=== PATIENT | female | born 1970 | race Caucasian/White ===

== ENCOUNTER 2016-07-25 15:21 | Emergency (ER) | payer BC, OTHER ==
[~2016-07-25] VITALS: Ht 177.8 cm; Wt 68.0 kg
[~2016-07-25 15:21] MED LIST: CELE20TA PO; DOCU1CAP39 PO; HYDR-4197 PO; PERC5TAB12 PO; PRED20 PO; WALKER STANDARD; WARF5 PO
[2016-07-25 15:24] VITALS: BP 150/91; PULSE 80; RESP 12; TEMP 98.6; O2SAT 100
[2016-07-25 15:55] LABS: AUTOMATED NEUTROPHIL # 5.1 TH/MM3 (1.8-7.7); BASOPHIL % 0.6 % (0.0-2.0); EOSINOPHIL # 0.2 TH/MM3 (0-0.4); EOSINOPHIL % 2.1 % (0.0-4.0); HEMATOCRIT 32.3 % (35.0-46.0); LYMPHOCYTE # 1.3 TH/MM3 (1.0-4.8); MEAN CELL VOLUME 74.6 FL (80.0-100.0); MEAN CORPUSCULAR HEMOGLOBIN 23.8 PG (27.0-34.0); MEAN CORPUSCULAR HGB CONC 31.9 % (32.0-36.0); MONO % 6.3 % (0.0-8.0); PLATELET COUNT 253 TH/MM3 (150-450); RED BLOOD COUNT 4.33 MIL/MM3 (4.00-5.30); WHITE BLOOD COUNT 7.1 TH/MM3 (4.0-11.0)
[2016-07-25 15:58] LABS: HEMO FLAGS AUTO DIFF
[2016-07-25] MEDS ORDERED: CELE20TA PO (16:06)
[2016-07-25 16:18] LABS: POTASSIUM 3.1 MEQ/L (3.5-5.1)
[2016-07-25 16:31] LABS: APTT (PATIENT) 26.6 SEC (24.3-30.1); INTERNATIONAL NORMALIZED RATIO 1.1 RATIO
[2016-07-25 16:46] LABS: SPHEROCYTES OCC (NORMAL)
[2016-07-25 16:47] LABS: PLATELET ESTIMATE SMEAR NORMAL (NORMAL); PLATELET MORPHOLOGY NORMAL (NORMAL); SCAN/DIFF AUTO DIFF CONFIRMED
--- NOTE | 2016-07-25 16:51 | RADRPT ---
EXAM DATE/TIME: 07/25/2016 16:46 [facility] COMPARISON: CHEST SINGLE AP, October 18, 2014, 6:11. INDICATIONS : Patient states blurred vision, shortness of breath and chest pain. MEDICAL HISTORY : Hypertension. Pulmonary embolism SURGICAL HISTORY : None. ENCOUNTER: Initial ACUITY: 1 day PAIN SCORE: 10/10 LOCATION: Bilateral chest FINDINGS: PA and lateral views of the chest demonstrate the lungs to be symmetrically aerated without evidence of mass, infiltrate or effusion. The cardiomediastinal contours are unremarkable. Osseous structure s are intact. CONCLUSION: No acute disease. Nelson Bruno MD on July 25, 2016 at 16:48 Board Certified Radiologist. This report was verified electronically.
--- NOTE | 2016-07-25 16:54 | PD ---
HPI Chief Complaint: Respiratory Distress Time Seen by Provider: 16:16 Travel History International Travel<30 days: No Contact w/Intl Traveler<30days: No Traveled to known affect area: No History of Present Illness HPI This 44 year-old woman presents to the emergency department complaining of chest pain, shortness of breath, dyspnea on exertion, ongoing for several weeks , gradually worsening. 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 She states that she completed a year of blood thinners, had trouble with bleeding related to the Xarelto, and so they discontinued her anticoagulation. She is worried she may have a repeat blood clot. History Past Medical History Narrative Medical PE Thrombophilia LMP: 06/2016 Social History Alcohol Use: No Tobacco Use: No Allergies-Medications (Allergen,Severity, Reaction): Coded Allergies: Contrast Media (Verified Allergy, Severe, Hives, 07/25/16) Penicillin (Verified Allergy, Intermediate, RASH, PAIN, 07/25/16) Reported Meds & Prescriptions Reported Meds & Active Scripts Active Reported Celexa (Citalopram Hydrobromide) 20 Mg Tab 20 Mg PO DAILY Review of Systems Except as stated in HPI: all other systems reviewed are Neg Physical Exam Narrative GENERAL: 44 year-old woman, generally well-appearing. No acute distress. SKIN: Warm and dry. HEAD: Atraumatic. Normocephalic. EYES: Pupils equal and round. No scleral icterus. No injection or drainage. ENT: No nasal bleeding or discharge. Mucous membranes pink and moist. NECK: Trachea midline. No JVD. CARDIOVASCULAR: Regular rate and rhythm. No murmur appreciated. RESPIRATORY: No accessory muscle use. Clear to auscultation. Breath sounds equal bilaterally. GASTROINTESTINAL: Abdomen soft, non-tender, nondistended. Hepatic and splenic margins not palpable. MUSCULOSKELETAL: No obvious deformities. No clubbing. No cyanosis. No edema. NEUROLOGICAL: Awake and alert. No obvious cranial nerve deficits. Motor grossly within normal limits. Normal speech. PSYCHIATRIC: Appropriate mood and affect; insight and judgment normal. Data Data Last Documented VS Vital Signs Date Time Temp Pulse Resp B/P Pulse Ox O2 Delivery O2 Flow Rate FiO2 07/25/16 16:05 16 98 Room Air 07/25/16 15:24 98.6 80 150/91 Orders Electrocardiogram (07/25/16 ) Complete Blood Count With Diff (07/25/16 15:32) Basic Metabolic Panel (Bmp) (07/25/16 15:32) D-Dimer (07/25/16 15:32) Act Partial Throm Time (Ptt) (07/25/16 15:32) Prothrombin Time / Inr (Pt) (07/25/16 15:32) Chest, Pa & Lat (07/25/16 ) Ventilation & Perfusion Scan (07/25/16 ) Labs Laboratory Tests Test 07/25/16 15:42 White Blood Count 7.1 TH/MM3 Red Blood Count 4.33 MIL/MM3 Hemoglobin 10.3 GM/DL Hematocrit 32.3 % Mean Corpuscular Volume 74.6 FL Mean Corpuscular Hemoglobin 23.8 PG Mean Corpuscular Hemoglobin 31.9 % Concent Red Cell Distribution Width 17.0 % Platelet Count 253 TH/MM3 Mean Platelet Volume 7.7 FL Neutrophils (%) (Auto) 72.0 % Lymphocytes (%) (Auto) 19.0 % Monocytes (%) (Auto) 6.3 % Eosinophils (%) (Auto) 2.1 % Basophils (%) (Auto) 0.6 % Neutrophils # (Auto) 5.1 TH/MM3 Lymphocytes # (Auto) 1.3 TH/MM3 Monocytes # (Auto) 0.4 TH/MM3 Eosinophils # (Auto) 0.2 TH/MM3 Basophils # (Auto) 0.0 TH/MM3 CBC Comment AUTO DIFF Differential Comment AUTO DIFF CONFIRMED Platelet Estimate NORMAL Platelet Morphology Comment NORMAL Spherocytes OCC Prothrombin Time 12.0 SEC Prothromb Time International 1.1 RATIO Ratio Activated Partial 26.6 SEC Thromboplast Time D-Dimer Quantitative (PE/DVT) 0.30 MG/L FEU Sodium Level 139 MEQ/L Potassium Level 3.1 MEQ/L Chloride Level 104 MEQ/L Carbon Dioxide Level 25.0 MEQ/L Anion Gap 10 MEQ/L Blood Urea Nitrogen 8 MG/DL Creatinine 0.74 MG/DL Estimat Glomerular Filtration 86 ML/MIN Rate Random Glucose 88 MG/DL Calcium Level 8.6 MG/DL [facility] Medical Decision Making Medical Screen Exam Complete: Yes Emergency Medical Condition: Yes Interpretation(s) My review of EKG: Normal sinus rhythm at a rate of 75, incomplete right bundle branch block, normal axis, normal intervals, no acute ischemia. CBC mild anemia BMP negative Coags unremarkable D-dimer 0.3 Chest x-ray negative PG negative Differential Diagnosis Pulmonary hypertension, right sided heart failure, PE, anxiety, other Narrative Course Medical decision making 44 year-old woman with gradually worsening shortness of breath with exertion and exercise intolerance, possibly related to anxiety given her history and knowing that she does not any blood thinners, possible recurrent PE, possible right sided heart strain or pulmonary hypertension related to previous PEs. We' ll check labs, CT scan, x-ray. Diagnosis Primary Impression: Shortness of breath Additional Impression: Anxiety Additional Instructions: Follow-up with your primary doctor in the next one to 2 weeks. Return to the emergency department for any worsening chest pain, trouble breathing, or any other new or worsening symptoms. Continue current medications. Med/Other Pt SpecificInfo: No Change to Meds Disposition: 01 DISCHARGE HOME Condition: Stable Guzman Osborne MD Jul 25, 2016 16:53
--- NOTE | 2016-07-25 17:28 | RADRPT ---
EXAM DATE/TIME: 07/25/2016 16:58 [facility] COMPARISON: CHEST PA & LAT, July 25, 2016, 16:46. INDICATIONS : Shortness of breath for one day. Syncope. DOSE: 8.8 mCi Tc99m MAA IV 1.4 mCi Tc99m DTPA aerosol MEDICAL HISTORY : None SURGICAL HISTORY : section. Tubal ligation. ENCOUNTER: Initial ACUITY: 1 day PAIN SCALE: 0/10 LOCATION: chest TECHNIQUE: Following five minutes of tidal breathing of DTPA aerosol, planar images of the lungs were performed in eight projections. The patient was then injected with MAA, and eight-view perfusion scan was perf ormed. FINDINGS: There is a homogeneous pattern of aerosol delivery to the periphery of both lungs. No focal ventilat ory defects are seen. The perfusion lung scan demonstrates a homogenous pattern of uptake in both lungs. No segmental or s ubsegmental defects are seen. CONCLUSION: Normal ventilation/perfusion lung scan. Danish Forbes MD on July 25, 2016 at 17:26 Board Certified Radiologist. This report was verified electronically.
--- NOTE | 2016-07-26 12:31 | EKG ---
Date Performed: 07/25/2016 Time Performed: 15:45:20 PTAGE: 45 years EKG: Sinus rhythm ST-T ABNORMALITIES DRAMATICALLY IMPROVED SINCE THE PRIOR TRACING POOR R WAVE PROGRESSION, CANNOT EXC LUDE OLD ANTEROSEPTAL INFARCT BORDERLINE ECG PREVIOUS TRACING : 10/18/2014 05.57 DOCTOR: Elijah Sparks Interpretating Date/Time 07/26/2016 12:29:36
== END 2016-07-25 18:05 | disposition home or self-care (01) ==
LOC: NETRI 15:21
DX: R06.02 Shortness of breath (principal); F41.9 Anxiety disorder, unspecified; R94.31 Abnormal electrocardiogram [ECG] [EKG]; D68.59 Other primary thrombophilia; Z86.711 Personal history of pulmonary embolism
CPT/HCPCS: 71020; 78582; 80048; 85025; 85379; 85610; 85730; 93005; 99285; A9540; A9567

== ENCOUNTER 2016-10-03 09:42 | Emergency (ER) | payer BC ==
[~2016-10-03] VITALS: Ht 172.7 cm; Wt 69.0 kg
[~2016-10-03 09:42] MED LIST changes: -DOCU1CAP39 PO; -HYDR-4197 PO; -PERC5TAB12 PO; -PRED20 PO; -WALKER STANDARD; -WARF5 PO
[2016-10-03 09:45] VITALS: BP 150/71; PULSE 98; RESP 16; TEMP 98.4; O2SAT 100
[2016-10-03] MEDS ORDERED: SODIUM CHLOR 0.9% 1000 ML INJ 1,000 ML IV SCH (10:19)
[2016-10-03 10:20] VITALS: RESP 17; O2SAT 98
--- NOTE | 2016-10-03 10:25 | PD ---
HPI Chief Complaint: Abdominal Pain Time Seen by Provider: 10:13 Travel History International Travel<30 days: No Contact w/Intl Traveler<30days: No Traveled to known affect area: No History of Present Illness HPI 45-year-old female here for evaluation of abdominal pain and blood in her stool. Symptoms have been going on for the last 2 weeks. Patient reports primary blood per rectum. She reports diffuse abdominal discomfort which she describes as burning, mild to moderate, no modifying factors. She is not on any antiplatelets or anticoagulants. No rectal pain. No hematemesis or coffee- ground emesis. No history of abdominal surgeries. No family history of colon cancer. PFSH Past Medical History Anxiety: Yes Depression: Yes Cancer: No Diminished Hearing: No Endocrine: No Gastrointestinal Disorders: Yes (RECTAL BLEEDING HX) Immune Disorder: No Musculoskeletal: Yes (low back pain) Neurologic: Yes (BULGING DISC L4,L5) Psychiatric: Yes Tetanus Vaccination: > 5 Years Influenza Vaccination: No ?: Not LMP: 10/03/16 Past Surgical History Section: Yes Gynecologic Surgery: Yes () Social History Alcohol Use: No Tobacco Use: No Substance Use: No Allergies-Medications (Allergen,Severity, Reaction): Coded Allergies: Contrast Media (Verified Allergy, Severe, Hives, 10/03/16) Penicillin (Verified Allergy, Intermediate, RASH, PAIN, 10/03/16) Reported Meds & Prescriptions Reported Meds & Active Scripts Active Reported Celexa (Citalopram Hydrobromide) 20 Mg Tab 20 Mg PO DAILY Review of Systems Except as stated in HPI: all other systems reviewed are Neg Physical Exam Narrative GENERAL: Well-developed, well-nourished, comfortable, no acute distress. SKIN: Warm and dry. No rash. No pallor. HEAD: Atraumatic. Normocephalic. EYES: Pupils equal and round. No scleral icterus. No injection or drainage. ENT: Mucous membranes pink and moist. NECK: Trachea midline. No JVD. CARDIOVASCULAR: Regular rate and rhythm. RESPIRATORY: No accessory muscle use. Clear to auscultation. Breath sounds equal bilaterally. GASTROINTESTINAL: Abdomen soft, non-tender, nondistended. Normal bowel sounds. RECTUM: Exam performed in the presence of a female nurse. No masses, no fissures, no hemorrhoids. No stool in rectal vault. MUSCULOSKELETAL: No obvious deformities. No clubbing. No cyanosis. No edema. NEUROLOGICAL: Awake and alert. No obvious cranial nerve deficits. Motor grossly within normal limits. Normal speech. PSYCHIATRIC: Appropriate mood and affect; insight and judgment normal. Data Data Last Documented VS Vital Signs Date Time Temp Pulse Resp B/P Pulse Ox O2 Delivery O2 Flow Rate FiO2 10/03/16 11:45 16 10/03/16 10:20 98 Room Air 10/03/16 09:45 98.4 98 150/71 Orders Beta Hcg (Quant/Titer) (10/03/16 10:19) Complete Blood Count With Diff (10/03/16 10:19) Comprehensive Metabolic Panel (10/03/16 10:19) Lipase (10/03/16 10:19) Prothrombin Time / Inr (Pt) (10/03/16 10:19) Act Partial Throm Time (Ptt) (10/03/16 10:19) Urinalysis - C+S If Indicated (10/03/16 10:19) Iv Access Insert/Monitor (10/03/16 10:19) Ecg Monitoring (10/03/16 10:19) Oximetry (10/03/16 10:19) Sodium Chlor 0.9% 1000 Ml Inj (Ns 1000 M (10/03/16 10:19) Sodium Chloride 0.9% Flush (Ns Flush) (10/03/16 10:30) Ct Abd/Pel W/O Iv Contrast (10/03/16 10:25) Morphine Inj (Morphine Inj) (10/03/16 11:45) Labs Laboratory Tests Test 10/03/16 10/03/16 10:20 10:30 White Blood Count 8.2 TH/MM3 Red Blood Count 4.40 MIL/MM3 Hemoglobin 10.7 GM/DL Hematocrit 33.3 % Mean Corpuscular Volume 75.5 FL Mean Corpuscular Hemoglobin 24.4 PG Mean Corpuscular Hemoglobin 32.3 % Concent Red Cell Distribution Width 17.7 % Platelet Count 316 TH/MM3 Mean Platelet Volume 7.7 FL Neutrophils (%) (Auto) 81.9 % Lymphocytes (%) (Auto) 10.7 % Monocytes (%) (Auto) 5.8 % Eosinophils (%) (Auto) 0.9 % Basophils (%) (Auto) 0.7 % Neutrophils # (Auto) 6.7 TH/MM3 Lymphocytes # (Auto) 0.9 TH/MM3 Monocytes # (Auto) 0.5 TH/MM3 Eosinophils # (Auto) 0.1 TH/MM3 Basophils # (Auto) 0.1 TH/MM3 CBC Comment AUTO DIFF Differential Comment AUTO DIFF CONFIRMED Prothrombin Time 11.9 SEC Prothromb Time International 1.1 RATIO Ratio Activated Partial 26.4 SEC Thromboplast Time Sodium Level 141 MEQ/L Potassium Level 3.5 MEQ/L Chloride Level 107 MEQ/L Carbon Dioxide Level 25.5 MEQ/L Anion Gap 9 MEQ/L Blood Urea Nitrogen 8 MG/DL Creatinine 0.71 MG/DL Estimat Glomerular Filtration 90 ML/MIN Rate Random Glucose 97 MG/DL Calcium Level 8.8 MG/DL Total Bilirubin 0.3 MG/DL Aspartate Amino Transf 15 U/L (AST/SGOT) Alanine Aminotransferase 18 U/L (ALT/SGPT) Alkaline Phosphatase 59 U/L Total Protein 7.1 GM/DL Albumin 4.1 GM/DL Lipase 113 U/L Human Chorionic Gonadotropin, LESS THAN 1 Quant MIU/ML Urine Color LIGHT-YELLOW Urine Turbidity CLEAR Urine pH 5.5 Urine Specific Junction 1.003 Urine Protein NEG mg/dL Urine Glucose (UA) NEG mg/dL Urine Ketones NEG mg/dL Urine Occult Blood MOD Urine Nitrite NEG Urine Bilirubin NEG Urine Urobilinogen LESS THAN 2.0 MG/DL Urine Leukocyte Esterase NEG Urine RBC LESS THAN 1 /hpf Urine Squamous Epithelial 1 /hpf Cells Urine Bacteria RARE /hpf Microscopic Urinalysis Comment CULT NOT INDICATED MDM Medical Decision Making Medical Screen Exam Complete: Yes Emergency Medical Condition: Yes Medical Record Reviewed: Yes Differential Diagnosis Colitis, IBD, colon mass, anemia, hemorrhoids, AVM Narrative Course Vital signs reviewed. CBC is remarkable for hemoglobin of 10.7 which is around her baseline. The rest of her CBC shows WBC 8.2, hematocrit 33.5, platelets 316, neutrophils 81.9% . CMP is unremarkable. Beta hCG is negative. UA shows moderate occult blood, rare bacteria, not suggestive of UTI. CT abdomen pelvis: Negative CT scan of the abdomen and pelvis. Patient was made aware of all findings. She is resting comfortably. She became very tearful because she does not have a primary care physician or someone follow-up with his and palpation. She does have insurance. On physical exam her rectal exam shows no masses, no fissures, no hemorrhoids. There is no stool in the rectal vault, and there is certainly no gross blood per rectum. Her abdominal exam is benign. At this point I do not believe the patient requires admission for further workup, and can be worked up as an outpatient. I will give her the name of the class a lineman cardiac monitor technician with whom to follow-up with regarding her reported GI bleed. I have also encouraged her to find a primary care physician with whom to follow-up with. She was informed on when to return to the emergency department. She verbalizes understanding and agreement with plan. Diagnosis Primary Impression: Abdominal pain Qualified Code: R10.84 - Generalized abdominal pain Additional Impression: Rectal bleed Referrals: Emily Garnett MD 3 days Clinical Trials Assistant Primary Care Physician 3 days Additional Instructions: Follow-up with a primary care physician this week. Follow-up with class a lineman Dr. Garnett or a class a lineman of your choice this week. Return to the emergency department for worsening symptoms or any other concerns. Scripts Ondansetron Odt (Zofran Odt)4 Mg Tab4 Mg SL Q8HR PRN (Nausea/Vomiting) #30 TAB Ref 0 Prov:Gigi Verduzco MD 10/03/16 Dicyclomine (Bentyl)20 Mg Tab20 Mg PO TID #20 TAB Ref 0 Prov:Gigi Verduzco MD 10/03/16 Disposition: 01 DISCHARGE HOME Condition: Stable Gigi Verduzco MD Oct 03, 2016 10:25
[2016-10-03] MEDS ORDERED: SODIUM CHLORIDE 0.9% FLUSH 10 ML FLUSH IV FLUSH PRN (10:30)
[2016-10-03 10:40] LABS: AUTOMATED NEUTROPHIL # 6.7 TH/MM3 (1.8-7.7); BASOPHIL # 0.1 TH/MM3 (0-0.2); BASOPHIL % 0.7 % (0.0-2.0); EOSINOPHIL # 0.1 TH/MM3 (0-0.4); EOSINOPHIL % 0.9 % (0.0-4.0); HEMATOCRIT 33.3 % (35.0-46.0); LYMPH % 10.7 % (9.0-44.0); LYMPHOCYTE # 0.9 TH/MM3 (1.0-4.8); MEAN CELL VOLUME 75.5 FL (80.0-100.0); MEAN CORPUSCULAR HEMOGLOBIN 24.4 PG (27.0-34.0); MEAN CORPUSCULAR HGB CONC 32.3 % (32.0-36.0); MONO % 5.8 % (0.0-8.0); NEUT % 81.9 % (16.0-70.0); PLATELET COUNT 316 TH/MM3 (150-450); RED CELL DISTRIBUTION WIDTH 17.7 % (11.6-17.2); WHITE BLOOD COUNT 8.2 TH/MM3 (4.0-11.0)
[2016-10-03 10:41] LABS: HEMO FLAGS AUTO DIFF
[2016-10-03 10:50] LABS: APTT (PATIENT) 26.4 SEC (24.3-30.1); INTERNATIONAL NORMALIZED RATIO 1.1 RATIO; PROTHROMBIN TIME - PATIENT 11.9 SEC (9.8-11.6)
[2016-10-03 10:52] LABS: BACTERIA, URINE RARE /hpf; BLOOD, URINE MOD (NEG); GLUCOSE,URINE NEG (NEG); KETONE, URINE NEG (NEG); NITRITE,URINE NEG (NEG); PH, URINE 5.5 (5.0-8.5); SQUAMOUS EPITHELIAL CELL URINE 1 /hpf (0-5); URINE COLOR LIGHT-YELLOW (YELLW/STRAW)
[2016-10-03 10:56] LABS: COMMENT (UR) CULT NOT INDICATED; CULTURE IF INDICATED CULT NOT INDICATED
[2016-10-03 10:56] LABS: ALT (GPT) 18 U/L (10-53); ANION GAP 9 MEQ/L (5-15); AST (GOT) 15 U/L (15-37); BICARBONATE 25.5 MEQ/L (21.0-32.0); BLOOD UREA NITROGEN 8 MG/DL (7-18); CHLORIDE 107 MEQ/L (98-107); GLOMERULAR FILTRATION RATE 90 ML/MIN (>89); POTASSIUM 3.5 MEQ/L (3.5-5.1); SODIUM (NA) 141 MEQ/L (136-145)
[2016-10-03 11:00] LABS: ALKALINE PHOSPHATASE 59 U/L (45-117); BETA HCG QUANT LESS THAN 1 MIU/ML (0-5); TOTAL BILIRUBIN ADULT 0.3 MG/DL (0.2-1.0)
[2016-10-03 11:21] LABS: SCAN/DIFF AUTO DIFF CONFIRMED
[2016-10-03 11:45] VITALS: RESP 16
[2016-10-03] MEDS ORDERED: MORPHINE SULFATE 4 MG/ML INJ IV PUSH ONE (11:45)
--- NOTE | 2016-10-03 11:50 | RADRPT ---
EXAM DATE/TIME: 10/03/2016 11:14 [facility] COMPARISON: CT BRAIN W/O CONTRAST, October 20, 2014, 14:52. INDICATIONS : Abdomen pain. ORAL CONTRAST: No oral contrast ingested. RADIATION DOSE: 10.08 CTDIvol (mGy) MEDICAL HISTORY : None SURGICAL HISTORY : None. ENCOUNTER: Initial ACUITY: 1 day PAIN SCALE: 5/10 LOCATION: Abdomen TECHNIQUE: Volumetric scanning of the abdomen and pelvis was performed. Using automated exposure control and ad justment of the mA and/or kV according to patient size, radiation dose was kept as low as reasonably achievable to obtain optimal diagnostic quality images. FINDINGS: The limited portion of the lung base visualized is clear. The appearance of the liver, spleen, pancreas, adrenal glands and kidneys is within normal limits. There is no retroperitoneal adenopathy. The abdominal aorta is normal in caliber. The visualized loops of small and large bowel are unremarkable. There is no free fluid within the pelvis. No iliac or inguinal adenopathy is seen. The reproductive o rgans are intact. The visualized bony structures demonstrate degenerative changes within the spine but are otherwise in tact. CONCLUSION: 1. Negative CT scan of the abdomen and pelvis. Davidson Arias MD on October 03, 2016 at 11:40 Board Certified Radiologist. This report was verified electronically.
[2016-10-03] MEDS ORDERED: BENT20TA PO (12:06)
[2016-10-03] MEDS ORDERED: ZOFR4TAB3 SL (12:06)
[2016-10-03 12:14] VITALS: BP 122/76; TEMP 97.8
== END 2016-10-03 12:14 | disposition home or self-care (01) ==
LOC: NEPC 09:42
DX: K62.5 Hemorrhage of anus and rectum (principal)
CPT/HCPCS: 74176; 80053; 81001; 83690; 84702; 85025; 85610; 85730; 96361; 96374; 99284; J2270; J7030

== ENCOUNTER → 2017-05-13 | Day surgery (SDC) | payer OTHER ==
[~2017-05-13] MED LIST changes: +BENT20TA PO; +LACTATED RINGER'S 1000 ML INJ 1,000 ML ONE; +PROPOFOL 500 MG/50 ML BTL IV ONE; +ZOFR4TAB3 SL
--- NOTE | 2017-05-13 09:21 | GIPROC ---
[facility] [address], [address] EGD PROCEDURE REPORT EXAM DATE: 05/13/2017 PATIENT NAME: Ofe Harris MR #: [id number] BIRTHDATE: 1970 ATTENDING: Chen Bello MD ORDER #: [id number] ART COORDINATOR: Nathen Amezquita RN STATUS: outpatient INDICATIONS: The patient is a 46 yr old female here for an EGD due to history of esophageal reflux PROCEDURE PERFORMED: EGD w/ biopsy MEDICATIONS: None and Per Anesthesia. TOPICAL ANESTHETIC: CONSENT: The patient understands the risks and benefits of the procedure and understands that these risks include, but are not limited to: sedation, allergic reaction, infection, perforation and/or bleeding. Alternative means of evaluation and treatment include, among others: physical exam, x-rays, and/or surgical intervention. The patient elects to proceed with this endoscopic procedure. medical equipment was checked for proper function. Hand hygiene and appropriate measures for infection prevention was taken. After the risks, benefits and alternatives of the procedure were thoroughly explained, Informed consent was verified, confirmed and timeout was successfully executed by the treatment team. The patient was anesthetized with topical anesthesia and the EC-[id number] ([id number]) endoscope was introduced through the mouth and advanced to the second portion of the duodenum. Retroflexed views revealed no abnormalities The gastroscope was then slowly withdrawn and removed. ESOPHAGUS: The mucosa of the esophagus appeared normal. STOMACH: There was erythematous moderate gastritis in the gastric antrum. A biopsy was performed using cold forceps. Sample sent for histology. DUODENUM: The duodenal mucosa appeared normal in the bulb and second portion of the duodenum. ADVERSE EVENTS: There were no complications. IMPRESSIONS: 1. The esophagus appeared normal 2. There was erythematous gastritis in the gastric antrum; biopsy was performed 3. Normal duodenal mucosa in the bulb and second portion of the duodenum 4. Retroflexed views revealed no abnormalities RECOMMENDATIONS: 1. Await biopsy results. Biopsy results will not be ready for 7-10 days. If you don't hear from us in two weeks, call our office for biopsy results. 2. Anti-reflux regimen 3. Continue PPI 4. HIDA scan PATIENT CONDITION: stable DISPOSITION: Home REPEAT EXAM: Return 3 years EGD pending biopsy results Chen Bello MD eSigned: Chen Bello MD 05/13/2017 9:21 AM cc: PATIENT NAME: Ofe Harris MR#: [id number]
--- NOTE | 2017-05-13 09:24 | GIPROC ---
[facility] [address], [address] COLONOSCOPY PROCEDURE REPORT EXAM DATE: 05/13/2017 PATIENT NAME: Ofe Harris MR #: [id number] BIRTHDATE: 1970 ENDOSCOPIST: Chen Bello MD ORDER #: [id number] WINDOWS INFRASTRUCTURE ENGINEER: Nathen Amezquita RN STATUS: outpatient INDICATIONS: The patient is a 46 yr old female here for a colonoscopy due to high risk patient with personal history of colonic polyps and high risk patient with personal history of colon cancer PROCEDURE PERFORMED: Colonoscopy with biopsy MEDICATIONS: None and Per Anesthesia. PREP QUALITY: The Evans Bowel Prep Score was Right colon 2, Mid colon 2, and Left colon 3. Total = 7. ESTIMATED BLOOD LOSS: None CONSENT: The patient understands the risks and benefits of the procedure and understands that these risks include, but are not limited to: sedation, allergic reaction, infection, perforation and/or bleeding. Alternative means of evaluation and treatment include, among others: physical exam, x-rays, and/or surgical intervention. The patient elects to proceed with this endoscopic procedure. medical equipment was checked for proper function. Hand hygiene and appropriate measures for infection prevention was taken. After the risks, benefits and alternatives of the procedure were thoroughly explained, Informed consent was verified, confirmed and timeout was successfully executed by the treatment team. A digital exam revealed external hemorrhoids The EC-[id number] ([id number]) endoscope was introduced through the anus and advanced to the cecum, which was identified by both the appendix and ileocecal valve. The instrument was then slowly withdrawn as the colon was fully examined. COLON FINDINGS: A medium sized circumferential patch of colitis was found in the rectum. The mucosa was erythematous and congested. A biopsy was performed using cold forceps. A polypoid shaped flat polyp ranging between 3-5mm in size was found in the sigmoid colon. Multiple biopsies were performed using cold forceps. A circumferential diffuse patch of abnormal mucosa was found at the cecum. Melanosis coli. A biopsy was performed using cold forceps. Retroflexed views revealed internal hemorrhoids and Retroflexed views revealed small internal hemorrhoids The scope was then completely withdrawn from the patient and the procedure terminated. PROCEDURE WITHDRAWAL TIME:6minutes ADVERSE EVENTS: There were no complications. IMPRESSIONS: 1. Medium sized circumferential colitis was found in the rectum; The mucosa was erythematous and congested; biopsy was performed using cold forceps 2. A flat polyp ranging between 3-5mm in size was found in the sigmoid colon; multiple biopsies were performed using cold forceps 3. Circumferential diffuse abnormal mucosa was found at the cecum; biopsy was performed using cold forceps 4. Retroflexed views revealed internal hemorrhoids 5. Retroflexed views revealed small internal hemorrhoids 6. Revealed external hemorrhoids RECOMMENDATIONS: 1. Await biopsy results. Biopsy results will not be ready for 7-10 days. If you don't hear from us in two weeks, call our office for results. 2. Benefiber 2 tsp daily 3. Continue surveillance 4. Yearly hemoccult 5. High fiber diet 6. Follow-up: GI Clinic 2 week(s) RECALL: Return 1 year Colonoscopy, pending biopsy results Chen Bello MD eSigned: Chen Bello MD 05/13/2017 9:24 AM cc: PATIENT NAME: Ofe Harris MR#: [id number]
== END | disposition home or self-care (01) ==
LOC: ESDC 07:33
PROVIDERS: ATTEND Internal Medicine Gastroenterology
DX: Z12.11 Encounter for screening for malignant neoplasm of colon (principal); Z86.010 Personal history of colon polyps; Z85.038 Personal history of other malignant neoplasm of large intestine; K64.4 Residual hemorrhoidal skin tags; K52.9 Noninfective gastroenteritis and colitis, unspecified; D12.5 Benign neoplasm of sigmoid colon; K63.89 Other specified diseases of intestine; K64.8 Other hemorrhoids; K21.9 Gastro-esophageal reflux disease without esophagitis; K29.70 Gastritis, unspecified, without bleeding
CPT/HCPCS: 00740; 00810; 43239; 45380; 88305; 88312; J3010; J7120